=== PATIENT | male | born 1995 | race Caucasian/White ===

== ENCOUNTER 2019-12-22 17:51 | Emergency (ER) | payer BC, OTHER ==
[~2019-12-22] VITALS: Ht 172.7 cm; Wt 92.7 kg
--- NOTE | 2019-12-22 18:42 | NUR ---
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 PT THEN BEGAN HAVING PAIN IN BLQ ABD AND GROIN AREA WHEN STANDING OR SITTING. PT SAYS PAIN THEN TRAVELED TO HIS CHEST AREA. PT DENIES SOB. PT WITH GOOD COLOR. DENIES ETOH ABUSE. PT TO BP, CARD MONITOR, CONT PULSE OX. PIV INITIATED AND LABS SENT
[2019-12-22 18:47] LABS: BASOPHILS # (AUTO) 0.03 x10^3/uL (0-0.1); BASOPHILS % (AUTO) 0 % (0-1); EOSINOPHILS # (AUTO) 0.12 x10^3/uL (0-0.4); EOSINOPHILS % (AUTO) 2 % (1-7); LYMPHOCYTES # (AUTO) 1.88 x10^3/uL (1-3.4); LYMPHOCYTES % (AUTO) 27 % (22-44); MD NO; MEAN CORPUSCULAR HGB CONC 34.6 g/dL (33.2-36.2); MEAN CORPUSCULAR VOLUME 86.5 fL (81-97); MEAN PLATELET VOLUME 11.1 fL (7.4-10.4); MONOCYTES % (AUTO) 10 % (2-9); NEUTROPHILS # (AUTO) 4.32 x10^3/uL (1.8-6.8); NEUTROPHILS % (AUTO) 61 % (42-75); PLATELET COUNT 190 x10^3/uL (130-400); RED BLOOD COUNT 5.29 x10^6/uL (4.38-5.82); RED CELL DISTRIBUTION WIDTH 12.8 % (9.4-14.8)
[2019-12-22 18:57] LABS: INTERNATIONAL NORMALIZED RATIO 0.95 (0.93-1.1); PROTHROMBIN TIME 10.1 Seconds (9.6-11.5)
[2019-12-22 18:59] LABS: ALANINE AMINOTRANSFERASE 66 U/L (12-78); ALBUMIN 4.2 g/dL (3.4-5.0); ANION GAP 5 mmol/L (5-15); CALCIUM 9.1 mg/dL (8.5-10.1); CHLORIDE 105 mmol/L (98-107); CREATININE 1.08 mg/dL (0.7-1.3)
[2019-12-22 19:01] LABS: ALKALINE PHOSPHATASE 67 U/L (45-117); BILIRUBIN,TOTAL 0.5 mg/dL (0.2-1.0)
[2019-12-22] MEDS ORDERED: OMNIPAQUE 350 MG/ML, 100ML BOTTLE ONE (19:46)
[2019-12-22 20:22] LABS: MICROSCOPIC NOT IND
[2019-12-22] MEDS ORDERED: AZITHROMYCIN 250 MG TABLET ONE (20:51)
[2019-12-22 20:55] VITALS: BP 142/77
[2019-12-22] MEDS ORDERED: AZITHROMYCIN 500 MG TABLET PO ONE (21:00)
== END 2019-12-22 21:39 | disposition home or self-care (01) ==
LOC: ED 18:51
DX: K52.9 Noninfective gastroenteritis and colitis, unspecified (principal); K62.5 Hemorrhage of anus and rectum
CPT/HCPCS: 36415; 74177; 80053; 81003; 85025; 85610; 85730; 99285; Q9967

== ENCOUNTER 2020-12-10 19:58 | Emergency (ER) | payer SELFPAY ==
[~2020-12-10] VITALS: Ht 175.3 cm; Wt 97.4 kg
[2020-12-10 20:41] LABS: BASOPHILS % (AUTO) 1 % (0-1); EOSINOPHILS % (AUTO) 2 % (1-7); LYMPHOCYTES % (AUTO) 26 % (22-44); MEAN CORPUSCULAR HGB CONC 34.2 g/dL (33.2-36.2); MEAN PLATELET VOLUME 10.2 fL (7.4-10.4); MONOCYTES % (AUTO) 9 % (2-9); NEUTROPHILS % (AUTO) 63 % (42-75); PLATELET COUNT 198 x10^3/uL (130-400); RED BLOOD COUNT 5.44 x10^6/uL (4.38-5.82); RED CELL DISTRIBUTION WIDTH 13.4 % (9.4-14.8)
[2020-12-10 20:42] LABS: MD NO
[2020-12-10 20:53] LABS: ANION GAP 4 mmol/L (5-15); CALCIUM 8.9 mg/dL (8.5-10.1); CHLORIDE 107 mmol/L (98-107)
[2020-12-10 20:54] LABS: CREATININE 0.91 mg/dL (0.7-1.3)
[2020-12-10] MEDS ORDERED: MAALOX/HYOSCYAMINE/LIDOCAINE 45 ML BTL ONE (22:45)
[2020-12-10 23:00] LABS: MICROSCOPIC NOT IND
[2020-12-10] MEDS ORDERED: MAALOX/HYOSCYAMINE/LIDOCAINE 45 ML BTL PO ONE (23:00)
[2020-12-10 23:14] LABS: ALANINE AMINOTRANSFERASE 66 U/L (12-78); ALBUMIN 4.2 g/dL (3.4-5.0)
[2020-12-10 23:16] LABS: ALKALINE PHOSPHATASE 73 U/L (45-117); BILIRUBIN,TOTAL 0.4 mg/dL (0.2-1.0); TOTAL PROTEIN 7.8 g/dL (6.4-8.2)
[2020-12-10 23:18] LABS: BILIRUBIN, DIRECT < 0.1 mg/dL (0.1-0.2); BILIRUBIN,INDIRECT 0.3 mg/dL (0.0-2.0)
--- NOTE | 2020-12-10 23:32 | NUR ---
Urine sent, pt to [facility].
[2020-12-11 00:04] VITALS: BP 135/92
== END 2020-12-11 01:01 | disposition home or self-care (01) ==
LOC: ED 23:55
DX: K21.00 Gastro-esophageal reflux disease with esophagitis, without bleeding (principal); R30.0 Dysuria; J02.8 Acute pharyngitis due to other specified organisms; B97.89 Other viral agents as the cause of diseases classified elsewhere; R10.32 Left lower quadrant pain
CPT/HCPCS: 36415; 71045; 74176; 80048; 80076; 81003; 83690; 85025; 87081; 87880; 99285